=== PATIENT | male | born 1980 | race African-American/Black ===

== ENCOUNTER 2016-12-03 11:24 | Emergency (ER) | payer SELFPAY ==
[2016-12-03 11:44] VITALS: BP 121/80
--- NOTE | 2016-12-03 11:53 | ER Document Report ---
ED General - General Chief Complaint: Insect Bite Stated Complaint: POSSIBLE TICK BITE Time Seen by Provider: 12/03/16 11:48 Mode of Arrival: Ambulatory Information source: Patient Notes: Patient is a 36-year-old -Mong[place]ian male who presents with possible tick bite. He states he pulled a tick off of his right upper back on Saturday morning , reports he did remove all of the tick. He is unsure of how long it was there, but doesn't believe it was there for >36 hours. He endorses rash to right axillary area - he thought it was his deodorant but he has been using the same deodorant for years. He states that evening he started experiencing nausea, chills, diarrhea and sweating. Last episode of diarrhea was this morning. He does have a history of Crohn's disease. Has not taken any medication for this. Denies any fever, body aches, joint pain, swelling, headache, neck stiffness, vomiting, dysuria. Denies any recent travel or sick contacts. TRAVEL OUTSIDE OF THE [place] IN LAST 30 DAYS: No - Related Data Allergies/Adverse Reactions: No Known Allergies Allergy (Verified 12/03/16 11:49) Home Medications: Current Home Medications No Home Medications 12/03/16 [History] Past Medical History - General Information source: Patient - Social History Smoking Status: Current Every Day Smoker Chew tobacco use (# tins/day): No Frequency of alcohol use: None Drug Abuse: None Family History: Reviewed & Not Pertinent Patient has suicidal ideation: No Patient has homicidal ideation: No Renal/ Medical History: Denies: Hx Peritoneal Dialysis Physical Exam - Vital signs Vitals: Temp Pulse Resp BP Pulse Ox 98.3 F 99 18 121/80 99 12/03/16 11:38 12/03/16 11:38 12/03/16 11:38 12/03/16 11:38 12/03/16 11:38 Interpretation: Normal - Notes Notes: PHYSICAL EXAM: CONSTITUTIONAL: Alert and oriented, well-appearing and in no acute distress. HENT: Normocephalic, atraumatic. Trachea midline. Uvula midline. Moist mucous membranes. EYES: Pupils equal round and reactive to light, EOM intact. Sclera anicteric, conjunctiva are normal. No entrapment. NECK: supple without lymphadenopathy. No midline tenderness or paraspinous muscle spasms. No step-offs or deformities. ROM intact. HEART: Regular rate and rhythm without murmurs. LUNGS: CTAB and equal. No wheezes, rales or rhonchi. GI: Normactive bowel sounds. Nontender, non-distended. No organomegaly. no CVAT. Negative Pack's sign. Negative McBurney's point tenderness, no rebound or guarding. BACK: nontender, no paraspinous spasm, 5+/5 strengths, DTRs 2+, SLR -. EXTREMITIES: Normal range of motion, no pitting edema. No cyanosis. Cap Refill < 3 seconds. NEURO: Cranial nerves grossly intact. Normal sensory/motor exams. PSYCH: Normal mood, normal affect. SKIN: Warm and dry. Normal turgor. Single papular lesion to right upper back just lateral to scapula without erythema. No evidence of target lesion indicative of erythema migrans. No edema, warmth, drainage. Right axilla without erythema, warmth, edema, rash. Course - Re-evaluation Re-evalutation: 12/03/16 12:07 Patient seen and examined. Tick bite - unsure of how long it was attached but patient and patient's family member agree is was <36 hours and patient is presenting >72 hours since bite occurred. No evidence of erythema migrans, cellulitis or disseminated symptoms of Lyme disease and it is too early in clinical progression for patient to have have symptoms. At this time because patient does not meet all criteria for receiving empiric antibiotic coverage so will defer at this time. Counseled patient on development of symptoms for Lyme disease and encouraged patient to return if any of those develop. Symptoms of diarrhea, nausea, and chills most consistent with viral syndrome. Discussed liquid/soft diet and using imodium as needed for symptomatic relief. Patient does not appear clinically dehydrated. Discussed return precautions. At this time, will discharge with return precautions and follow-up recommendations. Verbal discharge instructions given at the bedside and opportunity for questions given. Medication warnings reviewed. Patient is in agreement with this plan and has verbalized understanding of return precautions and the need for primary care follow-up in the next 24-72 hours. - Vital Signs Vital signs: Temp Pulse Resp BP Pulse Ox 98.3 F 99 18 121/80 99 12/03/16 11:38 12/03/16 11:38 12/03/16 11:38 12/03/16 11:38 12/03/16 11:38 Discharge - Discharge Clinical Impression: Insect bite Qualifiers: Encounter type: initial encounter Qualified Code(s): W57.XXXA - Bitten or stung by nonvenomous insect and other nonvenomous arthropods, initial encounter Condition: Stable Disposition: HOME, SELF-CARE Additional Instructions: Tick Bites You have been "attacked" by a tick. Once the tick is removed, these "bites " usually cause no problems. Tick fever, tick paralysis, Red Cloud Spotted fever, and Lyme disease are very rare -- but you should mention this tick bite to your doctor if you develop unusual symptoms in the next several weeks. If you develop any of the following, please see your physician promptly: (1) Fever, chills, or generalized malaise associated with a headache. (2) A rash. (3) Joint pain, joint swelling or generalized weakness. (4) Redness, swelling, or drainage at the site of the bite. Check yourself, your children and your pets for ticks whenever you've been in an area where ticks live. To remove a tick, grasp it firmly with some tweezers as close to its head as possible and pull it out twisting the tweezers in a counter-clockwise direction. Lyme Disease Lyme disease is an infection spread through the bite of a deer tick. Symptoms include rash, fever, fatigue, joint swelling, and aches. Return or seek medical attention if you develop any of these. Lyme disease can be treated with antibiotics. It is important that you take the entire course of medication, then follow-up for re-examination with your physician. Call the physician if you develop severe headache, stiff neck, paralysis or "drooping" of either side of the face, or a worsening of any other symptom. DIARRHEA, NON-SPECIFIC: Diarrhea means frequent, watery stools. There are many causes. Any problem that keeps the intestinal tract from absorbing water from the stool can lead to diarrhea. A sudden new diarrhea problem is usually caused by a virus, food sensitivity, toxic bacteria, or drugs. In this case, we expect the problem to go away soon. Testing is done only if you seem seriously ill from the diarrhea. If you have chronic diarrhea, or diarrhea that keeps coming back, we need to find out why. Chronic diarrhea can be due to inflammation of the bowels such as Crohn's disease or ulcerative colitis, food sensitivity such as intolerance to lactose or wheat protein, irritable bowel syndrome, and other problems. If your diarrhea is a significant problem but it's not clear why you have it, we' ll refer you to a specialist for further testing. During an episode of diarrhea, drink small amounts (two to six ounces) of clear liquids (soft drinks, sport drinks, herb teas, broth, etc). Take fluids frequently to prevent dehydration. It's usually not a problem to take mild anti- diarrhea medication such as Kaopectate or Pepto-Bismol. As the diarrhea eases, advance to small amounts of bland food (mashed potato, toast) for 24 hours. Call the physician if blood appears in your vomit or stool, if vomiting lasts longer than 24 hours, if the abdominal pain worsens or becomes localized to one area, if you develop high fever, or if you become lightheaded and weak. VIRAL SYNDROME: The physician has diagnosed a viral infection. Viruses not only cause "colds," but can cause many different symptoms including generalized aching, fever, headache, cough, diarrhea, nausea, vomiting, and fatigue. The treatment, for the most part, is simply relief of symptoms. This means that antibiotics are usually not given. Rest, fluids, pain medications and, occasionally, medication for the specific symptoms that are most bothersome will be prescribed. Use good handwashing to avoid passing the virus to others. Shared toys should be cleaned with disinfectant. Clean the toilets, sinks, and counter surfaces in bathrooms. Launder clothing in hot water. Contact the physician if you develop any new or unusual symptoms such as severe headache, stiff neck, high fever, chest pain, productive cough, or shortness of breath. You should be rechecked if you don't see marked improvement within seven to 10 days. You can also take [id number] Imodium as needed. FOLLOW-UP CARE: If you have been referred to a physician for follow-up care, call the physician s office for an appointment as you were instructed or within the next two days. If you experience worsening or a significant change in your symptoms, notify the physician immediately or return to the Emergency Department at any time for re-evaluation.
== END 2016-12-03 12:22 | disposition home or self-care (01) ==
LOC: ER 11:24
DX: S20.461A Insect bite (nonvenomous) of right back wall of thorax, initial encounter (principal); R21 Rash and other nonspecific skin eruption; W57.XXXA Bitten or stung by nonvenomous insect and other nonvenomous arthropods, initial encounter; F17.200 Nicotine dependence, unspecified, uncomplicated
CPT/HCPCS: 99281

== ENCOUNTER 2017-10-12 09:22 | Observation (INO) | payer SELFPAY ==
--- NOTE | 2017-10-12 10:14 | ER Document Report ---
HPI - HPI Patient complains to provider of: Draining anal abscess Onset: Other - 2 months Pain Level: 2 Context: 37-year-old male who was told that he had ulcers and Crohn's disease based on symptoms for at least 10 years has not seen Dr. ward surgical technology instructor since he moved here from [place] 3 years ago. He has chronic diarrhea. He did not seek help for this draining abscess because of the location and he was embarrassed. No fever or chills. Never had a colonoscopy. Associated Symptoms: None Exacerbated by: Denies Relieved by: Denies Similar symptoms previously: Yes Recently seen / treated by doctor: No - ROS ROS below otherwise negative: Yes Systems Reviewed and Negative: Yes All other systems reviewed and negative Past Medical History - General Information source: Patient - Social History Smoking Status: Unknown if Ever Smoked Frequency of alcohol use: None Drug Abuse: None Lives with: Spouse/Significant other Family History: Reviewed & Not Pertinent Renal/ Medical History: Denies: Hx Peritoneal Dialysis Malignancy Medical History: Reports Other - was tod that he had ulcers and crohns Surgical Hx: Negative Vertical Provider Document - CONSTITUTIONAL Agree With Documented VS: Yes Exam Limitations: No Limitations - INFECTION CONTROL TRAVEL OUTSIDE OF THE [place] IN LAST 30 DAYS: No - HEENT HEENT: Normal ENT Exam - NECK Neck: Supple - RESPIRATORY Respiratory: Breath Sounds Normal, No Respiratory Distress - CARDIOVASCULAR Cardiovascular: Regular Rate, Regular Rhythm - GI/ABDOMEN Gastrointestinal: Abdomen Soft, Abdomen Non-Tender - REPRODUCTIVE Notes: perianal abscess with induration into the anal canal - MUSCULOSKELETAL/EXTREMETIES Musculoskeletal/Extremeties: MAEW - NEURO Level of Consciousness: Awake - DERM Integumentary: Warm Course - Re-evaluation Re-evalutation: 10/12/17 10:[address] Byrd who will come see the patient. 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 The patient does not have a surgical technology instructor or treatment for the Crohn's. I will draw a CBC and comprehensive her basic lab work. 10/12/17 10:56 Dr. Byrd states that this needs to be dealt with in the OR and will be taking him to the OR he wanted 500 mg of Flagyl IV IV fluid and keep the patient n.p.o. patient did have one bite of honey bun about 20 minutes ago. - Vital Signs Vital signs: Temp Pulse Resp BP Pulse Ox 98.2 F 87 18 134/83 H 100 10/12/17 09:53 10/12/17 09:53 10/12/17 09:53 10/12/17 09:53 10/12/17 09:53 - Laboratory Result Diagrams: 10/12/17 10:24 10/12/17 10:24 Discharge - Discharge Clinical Impression: Perianal abscess with probable fistula Condition: Good Disposition: ADMITTED INPATIENT Admitting Provider: Surgicalist Unit Admitted: Surgical Floor
[2017-10-12 10:39] LABS: ABSOLUTE EOSINOPHILS # (AUTO) 0.2 10^3/uL (0.0-0.6); ABSOLUTE MONOCYTES (AUTO) 0.9 10^3/uL (0.1-1.4); ABSOLUTE NEUT (AUTO) 3.4 10^3/uL (1.7-8.2); BASOPHILS % (AUTO) 0.5 % (0-2); EOSINOPHILS % (AUTO) 2.7 % (0-6); HEMATOCRIT 40.7 % (37.9-51.0); HEMOGLOBIN 13.4 g/dL (13.5-17.0); LYMPHOCYTES % (AUTO) 30.9 % (13-45); MEAN CORPUSCULAR HEMOGLOBIN 27.3 pg (27.0-33.4); MEAN CORPUSCULAR HGB CONC 32.8 g/dL (32.0-36.0); MEAN CORPUSCULAR VOLUME 83 fl (80-97); MONOCYTES % (AUTO) 13.3 % (3-13); PLATELET COUNT 344 10^3/uL (150-450); RED BLOOD COUNT 4.88 10^6/uL (4.35-5.55); RED CELL DISTRIBUTION WIDTH 14.6 % (11.5-14.0); SEGMENTED NEUTROPHILS % (AUTO) 52.6 % (42-78); TOTAL CELLS COUNTED % (AUTO) 100 %; WHITE BLOOD COUNT 6.5 10^3/uL (4.0-10.5)
[2017-10-12] MEDS ORDERED: NORMAL SALINE 1000 ML 1,000 ML IV ONE (10:52)
[2017-10-12 10:59] LABS: ALANINE AMINOTRANSFERASE 47 U/L (21-72); ALBUMIN 3.8 g/dL (3.5-5.0); ALKALINE PHOSPHATASE 164 U/L (38-126); ANION GAP 10 (5-19); ASPARTATE AMINO TRANSFERASE 102 U/L (17-59); BILIRUBIN,DIRECT 0.1 mg/dL (0.0-0.4); BILIRUBIN,TOTAL 0.1 mg/dL (0.2-1.3); BLOOD UREA NITROGEN 5 mg/dL (7-20); CALCIUM 9.5 mg/dL (8.4-10.2); CARBON DIOXIDE 30 mmol/L (22-30); CHLORIDE 103 mmol/L (98-107); GLUCOSE 88 mg/dL (75-110); POTASSIUM 3.8 mmol/L (3.6-5.0); SODIUM 142.8 mmol/L (137-145); TOTAL PROTEIN 6.8 g/dL (6.3-8.2)
[2017-10-12] MEDS ORDERED: RINGERS SOLUTION,LACTATED 1,000 ML IV PRN (11:05)
[2017-10-12] MEDS ORDERED: METRONIDAZOLE 500 MG/NS RTU 100 ML IV ONE (11:06)
[2017-10-12] MEDS: METRONIDAZOLE 500 MG/NS RTU 100 ML IV SCH ×3 (11:06→23:11)
--- NOTE | 2017-10-12 11:13 | PDOC H&P ---
History of Present Illness Admission Date/PCP: 10/12/17 10:57 History of Present Illness: CAROL SHINE is a 37 year old male Presents to the emergency department via ground rescue complaining of 2 month history of perianal drainage, loose mucousy bowel movements. Was evaluated by Yadira Knapp in the emergency department, and found to have a perianal abscess with active drainage possible fistula in a no. Surgery was consulted and patient was advised admission for definitive surgical management. According the patient was accompanied by significant other he has lived in the [place] area for 3 years but does not have a local medical doctor and has no insurance. He carries a history of Crohn's disease although he has never been endoscoped from top or bottom, and is never been on disease modifying agents. He has been on medicine for ulcer disease although is never had a radiographic or endoscopic diagnosis of peptic ulcer disease. He does smoke. He denies fever or chills. He was seen at the [facility] in the past. Past Medical History Medical History: Other - Reported history of Crohn's disease Malignancy Medical History: Reports: Other - was tod that he had ulcers and crohns Past Surgical History Past Surgical History: Reports: None Social History Lives with: Spouse/Significant other Smoking Status: Current Every Day Smoker Hx Recreational Drug Use: No Family History Family History: Reviewed & Not Pertinent Parental Family History Reviewed: Yes Children Family History Reviewed: Yes Sibling(s) Family History Reviewed.: Yes Medication/Allergy Home Medications: No Home Medications 12/03/16 Allergies/Adverse Reactions: No Known Allergies Allergy (Verified 10/12/17 09:47) Review of Systems Constitutional: ABSENT: chills, fever(s), headache(s), weight gain, weight loss Eyes: ABSENT: visual disturbances Ears: ABSENT: hearing changes Cardiovascular: ABSENT: chest pain, dyspnea on exertion, edema, orthropnea, palpitations Gastrointestinal: ABSENT: abdominal pain, constipation, diarrhea, hematemesis, hematochezia, nausea, vomiting Genitourinary: ABSENT: dysuria, hematuria Musculoskeletal: ABSENT: joint swelling Integumentary: ABSENT: rash, wounds Neurological: ABSENT: abnormal gait, abnormal speech, confusion, dizziness, focal weakness, syncope Physical Exam Vital Signs: Temp Pulse Resp BP Pulse Ox 98.2 F 87 18 134/83 H 100 10/12/17 09:53 10/12/17 09:53 10/12/17 09:53 10/12/17 09:53 10/12/17 09:53 General appearance: PRESENT: no acute distress Head exam: PRESENT: normocephalic Eye exam: PRESENT: EOMI Mouth exam: PRESENT: neck supple Respiratory exam: PRESENT: clear to auscultation cisco Cardiovascular exam: PRESENT: RRR Pulses: PRESENT: normal carotid pulses, normal radial pulses GI/Abdominal exam: PRESENT: other Rectal exam: PRESENT: other - Patient examined in the left lateral decubitus position. There is collapsing acute abscess in the left lateral sidewall, with active pus draining from an opening approximately 2 cm from the anal verge. Neurological exam: PRESENT: alert, altered, awake Psychiatric exam: PRESENT: appropriate affect, other - Patient affect a bit flat Assessment & Plan - Diagnosis (1) Perianal abscess Is this a current diagnosis for this admission?: Yes Plan: The impression is that of a subacute perianal abscess, inadequately drained, possibly de niru, or related to Crohn's disease. Her graft Recommendations: 1. Set patient up for incision and drainage, packing, possible drain placement possible seton placement the main operating room, keep patient n.p.o., will start IV antibiotics and IV fluids. Her graft 2. Whether the patient has Crohn's or not is unclear. He may require more formal evaluation including colonoscopy and outpatient basis. All the above explained to the patient and his significant other. (2) Smoker Is this a current diagnosis for this admission?: Yes (3) History of Crohn's disease Is this a current diagnosis for this admission?: Yes - Time Time Spent: 50 to 70 Minutes Critical Time spent with patient: Less than 15 minutes Medications reviewed and adjusted accordingly: Yes Anticipated discharge: Home Within: within 24 hours - Inpatient Certification Based on my medical assessment, after consideration of the patient's comorbidities, presenting symptoms, or acuity I expect that the services needed warrant INPATIENT care.: Yes I certify that my determination is in accordance with my understanding of Medicare's requirements for reasonable and necessary INPATIENT services [42 CFR 412.3e].: Yes Medical Necessity: Need for Pain Control, Need for IV Antibiotics, Need for Surgery
[2017-10-12] MEDS ORDERED: MIDAZOLAM 2 MG/2 ML INJ ONE (16:24)
[2017-10-12] MEDS ORDERED: FENTANYL CITRATE INJ/PF 100 MCG/2 ML AMPUL ONE ×2 (16:24)
[2017-10-12] MEDS ORDERED: PROPOFOL INJ 200 MG/20 ML VIAL IV ONE (16:25)
[2017-10-12] MEDS ORDERED: ACETAMINOPHEN 0 ML IV ONE (16:25)
[2017-10-12] MEDS ORDERED: TETRACAINE HCL/PF 20MG/2ML AMPULE (SPINAL) ONE (16:38)
[2017-10-12] MEDS ORDERED: FENTANYL CITRATE INJ/PF 100 MCG/2 ML AMPUL IV PRN ×3 (17:31)
[2017-10-12] MEDS ORDERED: DIPHENHYDRAMINE HCL 50 MG/ML VIAL IV PRN (17:31)
[2017-10-12] MEDS ORDERED: PROMETHAZINE HCL INJ 25 MG/1 ML VIAL IV PRN (17:31)
--- NOTE | 2017-10-12 17:45 | Operative Report ---
Operative Report DATE OF SURGERY: 10/12/17 PREOPERATIVE DIAGNOSIS: 1. Reported history of Crohn's disease. 2. Perianal abscess POSTOPERATIVE DIAGNOSIS: Same with multiple left anterior lateral perianal abscesses with fistula in ano OPERATION: 1. Examination under anesthesia. 2. Debridement of multiple abscesses, perianal left anterior lateral space. 3. Placement of seton through left anterior lateral fistula in ano SURGEON: NATALIA FERNANDO ANESTHESIA: Spinal TISSUE REMOVED OR ALTERED: Pus COMPLICATIONS: None ESTIMATED BLOOD LOSS: 5 cc INTRAOPERATIVE FINDINGS: See below PROCEDURE: The patient was taken to the operating room where spinal anesthesia was induced. Patient was placed in the prone jackknife position buttocks cheeks spread, hair clipped, buttocks spread and taped widely prepped and draped in sterile fashion. Surgical plan and surgical timeout conducted The external findings are significant for indurated, multiple sites of drainage in the patient's left anterior lateral upper quadrant. The remainder the perianal tissue was grossly unremarkable. The anal canal was dilated up to to accommodate 1-1/2 fingers. I could not stretch the anal canal to admit to adult fingers. By palpation and visual inspection of the anal canal using a hand-held medium size [place] retractor, no obvious internal anal canal or lower rectal pathology was visualized. I Did not perform any endoscopic procedure. The obvious pathology was the previously described multiple draining site infection in the left anterior lateral quadrant. Small radial incisions were made over the 3 draining sites to sites approximately 4-5 cm in the anal verge and one side approximately 2 cm the anal verge. All of these sites were broken up of loculations in a limited fashion with hemostatic curette. Skin incisions were made with a #10 blade. Depth of the infection was subcutaneous space. Wound culture sent for Gram stain and sensitivity. All 3 small cavities communicated with each other to some degree. The small abscess cavity closest to the anal verge was probed with the fine metallic stent and found to communicate with the anal canal in a direct radial fashion. The fistula in ano appeared to be at least involving a portion of and perhaps even deep to the external sphincter muscle. Therefore a dev loop was placed in a loop fashion and tied it and knot as a seton as this fistula was not a candidate for fistulectomy. A narrow Catherine drain was placed between the 2 other abscess cavity openings in a loop fashion and tied in a knot to keep these cavities open ; no packing was applied.. We irrigated the cavities out thoroughly with saline. Bleeding was minimal. Patient tolerated the procedure well 4 x 4's and dressing applied. He was taken recovery in stable condition.
[2017-10-12] MEDS ORDERED: DOCUSATE SODIUM 100 MG CAPSULE PO SCH (18:00)
[2017-10-13] MEDS ORDERED: KETOROLAC TROMETHAMINE INJ/PF 30 MG/1 ML SDV IV PRN (04:34)
[2017-10-13] MEDS: METRONIDAZOLE 500 MG/NS RTU 100 ML IV SCH (05:13)
[2017-10-13 08:15] VITALS: BP 115/62
--- NOTE | 2017-10-13 19:04 | DISCHARGE SUMMARY E ---
Discharge Summary NAME: CAROL SHINE : 1980 AGE: 37Y ADMITTED: 10/12/2017 DISCHARGED: 10/13/2017 REASON FOR ADMISSION: Perianal abscess. SUMMARY OF HOSPITALIZATION: The patient is a 37-year-old -E[place] male with a reported history of Crohn's disease who presents to the emergency department with a chronic draining perianal abscess who was admitted to the Surgicalist Service, kept n.p.o. on IV fluids, and subsequently taken to the operating room where he underwent exam under anesthesia, drainage of perianal abscess x3, loop drain placement, and loop seton for [id number]; all pathology confined to the left anterior quadrant. The patient was maintained on IV antibiotics overnight, tolerated the procedure well, was discharged home the following day. FINAL DIAGNOSIS: Perianal abscess with [id number] status post exam under anesthesia, perianal abscess debridement, drain placement and seton placement. DISPOSITION: The patient will discharge under the care of his family, followupwith Dr. Rm in [facility] in 1 week, will perform sitz baths, and be off p.o. antibiotics. DICTATING PHYSICIAN: NATALIA FERNANDO M.D. [id number] PHY#: [id number] ID: [id number] JOB#: [id number] ACCT: [id number] cc:Jennifer FRANKS MD, M.D. NANCY MELLING, F.N.P. > DANA
== END 2017-10-13 10:05 | disposition home or self-care (01) ==
LOC: ER 09:22 → EH 10:57 → INTOOBSV 10:57 → 2N 14:12
PROVIDERS: ATTEND Surgery
PROC: 0D9QX0Z Drainage of Anus with Drainage Device, External Approach (ICD-10-PCS; 2017-10-12)
PROC: 0HB9XZZ Excision of Perineum Skin, External Approach (ICD-10-PCS; principal; 2017-10-12 16:45)
DX: K61.0 Anal abscess (principal); K50.90 Crohn's disease, unspecified, without complications; F17.200 Nicotine dependence, unspecified, uncomplicated
CPT/HCPCS: 99284; 36415; 87070; 87205; 85025; 87075; 87077; 80053; 87186; 46020; 46050; G0378 ×3; J2250; J1885; J7030; J2704; J3490; 902; J0131; J3010

== ENCOUNTER 2017-10-19 13:40 | Emergency (ER) | payer MEDICAID ==
--- NOTE | 2017-10-19 13:52 | ER Document Report ---
ED Medical Screen (RME) - General Chief Complaint: Other Stated Complaint: DRAIN TUBE FELL OUT Time Seen by Provider: 10/19/17 13:46 Notes: RME DISCLOSURE I have seen this patient as part of a Rapid Medical Evaluation and, if applicable, placed any initially appropriate orders. The patient will be seen and fully evaluated, including a full history and physical exam, by a provider ( in Main ED or Fast Track) when a room becomes available. 37-year-old male here complaining that his drainage tube fell out of where he had a recent incision/drainage. He states he was sitting down on the steps and thinks that it fell out sometime yesterday evening. He reports that the abscess was located on his buttocks. TRAVEL OUTSIDE OF THE [place] IN LAST 30 DAYS: No - Related Data Allergies/Adverse Reactions: No Known Allergies Allergy (Verified 10/12/17 09:47) Past Medical History - Social History Chew tobacco use (# tins/day): No Frequency of alcohol use: None Drug Abuse: None Renal/ Medical History: Denies: Hx Peritoneal Dialysis - Immunizations History of Influenza Vaccine for 04/2017 - 09/2017 Season: Refused Physical Exam - Vital signs Vitals: Temp Pulse Resp BP Pulse Ox 98.0 F 72 16 131/83 H 100 10/19/17 13:44 10/19/17 13:44 10/19/17 13:44 10/19/17 13:44 10/19/17 13:44 Course - Vital Signs Vital signs: Temp Pulse Resp BP Pulse Ox 98.0 F 72 16 131/83 H 100 10/19/17 13:44 10/19/17 13:44 10/19/17 13:44 10/19/17 13:44 10/19/17 13:44
[2017-10-19] MEDS ORDERED: LIDOCAINE 4%/TETRACAINE 0.5%/EPI 0.18% 5 ML TOPICAL SOLN TOP ONE (14:25)
[2017-10-19] MEDS ORDERED: LIDOCAINE 1% INJ-PF (10 MG/ML) 30 ML SDV INJ ONE (14:25)
--- NOTE | 2017-10-19 14:29 | ER Document Report ---
ED General - General Chief Complaint: Other Stated Complaint: DRAIN TUBE FELL OUT Time Seen by Provider: 10/19/17 13:46 Notes: 37-year-old male. History of perirectal abscess. Seen by Dr. Byrd. Operated on on October 12. Seen yesterday in the clinic for revision of 1 of the Mcleod drains on the external incisions. Fell out this morning. Denies any significant pain. Has continued to have some drainage. Dr. Byrd stated that the external drain should be in place for 2-3 more weeks. TRAVEL OUTSIDE OF THE [place] IN LAST 30 DAYS: No - HPI Onset: This morning Onset/Duration: Sudden - Related Data Allergies/Adverse Reactions: No Known Allergies Allergy (Verified 10/12/17 09:47) Past Medical History - General Information source: Patient - Social History Smoking Status: Current Every Day Smoker Chew tobacco use (# tins/day): No Frequency of alcohol use: None Drug Abuse: None Lives with: Spouse/Significant other Family History: Reviewed & Not Pertinent Patient has suicidal ideation: No Patient has homicidal ideation: No Renal/ Medical History: Denies: Hx Peritoneal Dialysis Review of Systems - Review of Systems Constitutional: denies: Fever, Malaise, Weakness Cardiovascular: denies: Chest pain, Palpitations, Heart racing Respiratory: denies: Cough, Hurts to breathe, Short of breath Gastrointestinal: See HPI, Other - Rectal abscess with incision and drainage.. denies: Rectal bleeding Genitourinary: No symptoms reported Skin: See HPI, Lesions, Other - Abscess, perirectal abscess Physical Exam - Vital signs Vitals: Temp Pulse Resp BP Pulse Ox 98.0 F 72 16 131/83 H 100 10/19/17 13:44 10/19/17 13:44 10/19/17 13:44 10/19/17 13:44 10/19/17 13:44 Interpretation: Normal - Respiratory Respiratory status: No respiratory distress Chest status: Nontender Breath sounds: Normal Chest palpation: Normal - Cardiovascular Rhythm: Regular Heart sounds: Normal auscultation Murmur: No - Skin Skin Temperature: Warm Skin Moisture: Dry Skin Color: Other - There are too small perirectal incisions on the 11:00 and 7 o'clock position on the perirectal area. Track is open and small amount of clear drainage. No Mcleod drain is in place. There is a Catherine drain in place in the perianal area tied and intact. Course - Re-evaluation Re-evalutation: 10/19/17 14:29 Being that the patient has been operated on and this is a postoperative patient I have consulted with Dr. Byrd's colleague Dr. Shoemaker. Dr. Puente will come in and evaluate patient for possible drain replacement. 10/19/17 16:07 Surgeon has seen and placed new drain. No complications. Will DC shortly. 10/19/17 16:07 . - Vital Signs Vital signs: Temp Pulse Resp BP Pulse Ox 98.0 F 72 16 131/83 H 100 10/19/17 13:44 10/19/17 13:44 10/19/17 13:44 10/19/17 13:44 10/19/17 13:44 Discharge - Discharge Clinical Impression: Sharonda-rectal abscess Condition: Good Disposition: HOME, SELF-CARE Instructions: Anal Fissure ([facility]) Additional Instructions: Please follow-up with Dr. Byrd. Please follow the instructions of the general surgeon that saw you today, Dr. Shoemaker. Return if needed for reassessment.
[2017-10-19] MEDS ORDERED: HYDROCODONE/ACETAMINOPHEN 5-325 MG (6 TAB/ER DISP) PO PRN (15:11)
[2017-10-19] MEDS ORDERED: FENTANYL CITRATE INJ/PF 100 MCG/2 ML AMPUL IM ONE (15:11)
[2017-10-19 16:23] VITALS: BP 138/67
--- NOTE | 2017-10-19 16:44 | OPERATIVE REPORT E ---
Operative Report NAME: CAROL SHINE : 1980 AGE: 37Y DATE OF SURGERY: 10/19/2017 ROOM: PREOPERATIVE DIAGNOSIS: PULLED OUT DRAIN FROM FISTULOUS TRACT ON THE LEFT PERIANAL AREA. POSTOPERATIVE DIAGNOSIS: PULLED OUT DRAIN FROM FISTULOUS TRACT ON THE LEFT PERIANAL AREA. OPERATION: Placement of a vessel loop drain on the fistulous tract on the left perianal area. SURGEON: SAMARA CORTES M.D. ANESTHESIA: Local and IM fentanyl. INDICATION: This is a 37-year-old male who had a fistulous tract drained by Dr. Byrd about a week ago. Yesterday, a rubber drain was placed on the external side of the fistulous tract that somehow came out according to the patient and his girlfriend. They came to the Emergency Room and this apparently needed to be put back since Dr. Byrd claims this should be in for at least 4 weeks. DESCRIPTION OF PROCEDURE: The patient was placed in the prone position and then given 100 mcg of fentanyl IM. Following this, the perianal area was then prepped and draped in the usual sterile fashion. Local anesthesia infiltrated around crack site in the external area. Local anesthesia infiltrated around the fistulous tract. There is a tract on 2 sides from the left lateral area, 1 incision, and then the tract going down medially to a distance of about an inch and a half. Following this, a red rubber vessel loop was then threaded from the lateral side down into the subcutaneous area going to the medial side. The vessel loop was then tied over several times to prevent it from unraveling. However, after a minute or so, the distal knot started to unravel. Because of this, the other knots were tied more snugly and a piece of 5-0 nylon was tied over the most distal knot to prevent it from unraveling. A sterile dressing was placed over the procedure site. There was still a drain that was intact in the deeper aspect of the fistula. In essence, he has got 2 drains now as it was before. Patient and girlfriend advised to follow up with the Surgical Clinic as they were scheduled to. DICTATING PHYSICIAN: SAMARA CORTES M.D. [id number] PHY#: [id number] ID: [id number] JOB#: [id number] ACCT: [id number] cc:SAMARA CORTES M.D. >
== END 2017-10-19 16:22 | disposition home or self-care (01) ==
LOC: ER 13:40
PROC: 0W2 Anatomical Regions, General, Change (ICD-10-PCS; principal; 2017-10-19)
DX: K61.1 Rectal abscess (principal); T81.89XA Other complications of procedures, not elsewhere classified, initial encounter; F17.200 Nicotine dependence, unspecified, uncomplicated
CPT/HCPCS: 99283; 17999; J3010; J3490 ×2

== ENCOUNTER 2017-11-18 08:31 | Day surgery (SDC) | payer MEDICAID ==
[~2017-11-18 08:31] MED LIST: PROPOFOL INJ 200 MG/20 ML VIAL IV ONE
[2017-11-18 10:24] VITALS: BP 115/89
--- NOTE | 2017-11-18 13:44 | Operative Report ---
Operative Report DATE OF SURGERY: 11/18/17 Operative Report: The risks, benefits and alternatives of the procedure including risks of bleeding, perforation requiring surgery are explained to the patient in detail and informed consent is obtained. Patient is brought back to the endoscopy suite and placed in the left, lateral decubital position. Timeout was called. Propofol medications administered. A rectal examination is done which did not reveal any masses, tears or fissures. An Olympus videoscope was inserted into the patient's rectum. The scope was then carefully advanced all the way to the cecum. The cecum was identified by the usual anatomical landmarks including the ileocecal valve as well as the appendiceal office. Photodocumentation is obtained. The scope was then sequentially pulled back via the various segments of the colon including the ascending colon, hepatic flexure transverse colon, splenic flexure, descending colon and finally into the rectosigmoid portions of the colon. Retroflexion maneuvers performed. PREOPERATIVE DIAGNOSIS: Perirectal abscess suspicious for Crohn's disease POSTOPERATIVE DIAGNOSIS: Inflammation noted in the colon. Terminal ileum ulcer very suggestive of Crohn's disease status post biopsy OPERATION: Colonoscopy with biopsy SURGEON: GILDA NOVAK ANESTHESIA: LMAC TISSUE REMOVED OR ALTERED: As noted above. COMPLICATIONS: None. ESTIMATED BLOOD LOSS: None. INTRAOPERATIVE FINDINGS: As noted above. PROCEDURE: Patient tolerated procedure well. No immediate postprocedure complications are noted. Patient discharged in good condition. Discharge date 11/18/2017. Discharge diet: Regular. Discharge activity: Regular. 2-3 week follow-up to discuss findings. Patient is instructed to call the office or proceed to the emergency room should there be any further problems or questions. Patient is encouraged to take his medication because he has declined to do so. We will wait on pathology. He would likely benefit from Humira treatment.
== END 2017-11-18 10:10 | disposition home or self-care (01) ==
LOC: END 08:31
PROVIDERS: ATTEND Internal Medicine Gastroenterology
DX: K63.3 Ulcer of intestine (principal); K62.89 Other specified diseases of anus and rectum; F17.210 Nicotine dependence, cigarettes, uncomplicated; I10 Essential (primary) hypertension; J45.909 Unspecified asthma, uncomplicated
CPT/HCPCS: 45380; 88305 ×2; J2704; 811

== ENCOUNTER 2019-04-21 12:09 | Emergency (ER) | payer MEDICAID ==
[2019-04-21 12:15] VITALS: BP 113/78
[2019-04-21] MEDS ORDERED: LIDOCAINE 1% INJ (10 MG/ML) 10 ML MDV INJ ONE (13:39)
--- NOTE | 2019-04-21 13:51 | ER Document Report ---
HPI - HPI Patient complains to provider of: Insect in left ear Onset: This afternoon Onset/Duration: Sudden Pain Level: 0 Context: Patient states he was mowing the grass and a bug flew into his ear. Patient complains of feeling movement of the insect. Associated Symptoms: Earache Exacerbated by: Denies Relieved by: Denies Similar symptoms previously: No Recently seen / treated by doctor: No - ROS ROS below otherwise negative: Yes Systems Reviewed and Negative: Yes All other systems reviewed and negative - EENT EENT: REPORTS: Ear Pain - DERM Skin Color: Normal Skin Problems: None Past Medical History - General Information source: Patient - Social History Smoking Status: Current Every Day Smoker Chew tobacco use (# tins/day): No Frequency of alcohol use: Social Drug Abuse: None Occupation: [employer] care Lives with: Family Family History: Reviewed & Not Pertinent Patient has suicidal ideation: No Patient has homicidal ideation: No - Past Medical History Cardiac Medical History: Reports: Hx Coronary Artery Disease, Hx Hypertension Denies: Hx Heart Attack Pulmonary Medical History: Reports: Hx Asthma Denies: Hx Bronchitis, Hx COPD, Hx Pneumonia Neurological Medical History: Denies: Hx Cerebrovascular Accident, Hx Seizures Renal/ Medical History: Denies: Hx Peritoneal Dialysis Musculoskeletal Medical History: Reports Hx Arthritis - GENERALIZED Surgical Hx: Negative - Immunizations Hx Diphtheria, Pertussis, Tetanus Vaccination: No Vertical Provider Document - CONSTITUTIONAL Agree With Documented VS: Yes Exam Limitations: No Limitations General Appearance: WD/WN, No Apparent Distress - INFECTION CONTROL TRAVEL OUTSIDE OF THE [place] IN LAST 30 DAYS: No - HEENT HEENT: Atraumatic, Normocephalic Notes: visible FB to left EAC, appears to be an insect - NECK Neck: Normal Inspection - RESPIRATORY Respiratory: No Respiratory Distress - MUSCULOSKELETAL/EXTREMETIES Musculoskeletal/Extremeties: MAEW - NEURO Level of Consciousness: Awake, Alert, Appropriate Motor/Sensory: No Motor Deficit - DERM Integumentary: Warm, Dry Course - Re-evaluation Re-evalutation: 04/21/19 Insect removed with gentle flushing and irrigation of the ear canal. Patient tolerated well. Normal left TM - Vital Signs Vital signs: Temp Pulse Resp BP Pulse Ox 98.0 F 84 113/78 99 04/21/19 12:15 04/21/19 12:15 04/21/19 12:15 04/21/19 12:15 Discharge - Discharge Clinical Impression: FB ear Qualifiers: Encounter type: initial encounter Laterality: left Qualified Code(s): T16.2XXA - Foreign body in left ear, initial encounter Disposition: HOME, SELF-CARE Instructions: Foreign Object in the Ear ([facility]) Additional Instructions: Return immediately for any new or worsening symptoms Followup with your primary care provider, call tomorrow to make a followup appointment Forms: Return to Work Referrals: GAL SAINI PA-C [NO LOCAL MD] - Follow up as needed
== END 2019-04-21 14:19 | disposition home or self-care (01) ==
LOC: ER 12:09
DX: T16.2XXA Foreign body in left ear, initial encounter (principal); X58.XXXA Exposure to other specified factors, initial encounter; Y93.H9 Activity, other involving exterior property and land maintenance, building and construction; F17.200 Nicotine dependence, unspecified, uncomplicated; I25.10 Atherosclerotic heart disease of native coronary artery without angina pectoris; I10 Essential (primary) hypertension; J45.909 Unspecified asthma, uncomplicated
CPT/HCPCS: 99282